=== PATIENT | female | born 1995 | race Caucasian/White ===

== ENCOUNTER 2021-10-04 20:06 | Observation (INO) | payer OTHER ==
[~2021-10-04] VITALS: Ht 167.6 cm; Wt 66.7 kg
[2021-10-04 22:25] LABS: HEMOGLOBIN 11.4 gm/dl (12.3-15.3); RED BLOOD COUNT 3.79 M/UL (4.00-5.10); WHITE BLOOD COUNT 9.7 K/UL (4.5-11.0)
[2021-10-04 22:46] LABS: BUN/CREATININE RATIO 28 (0-10)
--- NOTE | 2021-10-05 09:19 | NUR ---
pt signed consent for d&c
[2021-10-05] MEDS ORDERED: METHYLERGO0.2 MG/1 M PO (10:40)
[2021-10-05] MEDS ORDERED: IBUPROFEN600 MG PO (10:40)
[2021-10-05] MEDS ORDERED: DOXYCYCLINE HY100 MG PO (10:40)
--- NOTE | 2021-10-05 14:30 | NUR ---
PATIENT TOLERATED LUNCH WIHTOUT PROBLEMS, STATES MINIMAL TO NO BLEEDING.
== END 2021-10-05 15:20 | disposition home or self-care (01) ==
LOC: ER1 20:06 → M/S 10-05 01:10 → CDU 10-05 01:10 → M/S 10-05 01:10
PROVIDERS: Student in an Organized Health Care Education/Training Program; ADMIT Obstetrics & Gynecology
PROC: 10D17ZZ Extraction of Products of Conception, Retained, Via Natural or Artificial Opening (ICD-10-PCS; principal; 2021-10-05 10:30)
DX: O03.4 Incomplete spontaneous abortion without complication (principal); J45.909 Unspecified asthma, uncomplicated; F17.290 Nicotine dependence, other tobacco product, uncomplicated
CPT/HCPCS: 76817; 80048; 81001; 84702; 84703; 85025; 86900; 86901; 96374; 96375; 99285; G0378; J0696; J1100; J1885; J2001; J2210; J2250; J2405; J2704; J2791; J3010; J7030; J7070; J7120